=== PATIENT | male | born 1960 | race Caucasian/White ===

== ENCOUNTER → 2022-02-06 | Outpatient (CLI) | payer BC ==
--- NOTE | 2022-02-09 10:17 | PE ---
EXAMINATION TYPE: PET CT fusion skull to thigh DATE OF EXAM: 02/06/2022. CLINICAL INDICATION:Male, 61 years old with history of C88.4; TECHNIQUE: Following the intravenous administration of 11.13 mCi of F-18 FDG, whole body images are performed from the skull base to the midthigh. Images are reviewed on the computer in the coronal, a xial, and sagittal planes. Reconstructed rotating images are created on independent workstation and reviewed on the computer. A non-contrast CT is performed in conjunction with the PET scan. Glucose le marie 95 mg/dL COMPARISON: CT None, PET/CT None, FINDINGS: Mediastinal SUV mean is 1.4. Hepatic parenchyma SUV mean is 2.5. SKULL BASE AND NECK: No suspicious FDG activity. CHEST, MEDIASTINUM, AND HILAR REGION: No suspicious FDG activity. ABDOMEN AND PELVIS: No suspicious FDG activity. OSSEOUS STRUCTURES: No suspicious FDG activity. OTHER CT: Atherosclerosis of the arterial vasculature including the carotid bifurcations and the aydee nary arteries. The heart is mildly enlarged for size. Fat-containing inguinal hernias left greater th an right. The prostate gland is enlarged measuring up to 5.0 cm in transverse dimension. IMPRESSION: 1. No suspicious FDG activity. 2. No enlarged lymph nodes identified.
== END | disposition home or self-care (01) ==
LOC: RADPETMAIN 09:26
PROVIDERS: ATTEND Radiology Radiation Oncology
DX: C88.4 Extranodal marginal zone B-cell lymphoma of mucosa-associated lymphoid tissue [MALT-lymphoma] (principal)
CPT/HCPCS: 78815; A9552

== ENCOUNTER 2022-10-24 18:44 | Emergency (ER) | payer BC ==
[2022-10-24 19:03] VITALS: RESP 18; TEMP 97
--- NOTE | 2022-10-24 19:18 | ED ---
Syncope HPI - General Chief Complaint: Syncope Stated Complaint: Syncope Time Seen by Provider: 10/24/22 19:09 Source: patient, family Mode of arrival: ambulatory - History of Present Illness Initial Comments: This patient is a 62-year-old man who is here to have evaluation after he had passed out. The patient reports that he had been working outside and thinks she may been dehydrated as it was warm out. He also noted that he had been having some diarrhea previous days and might of been dehydrated to begin with. Patient states that he was going to go and get a drink of water when he attempted to get up felt lightheaded and then did pass out. He denies having any injury. No head, neck, back, chest or extremity pain. He did have some brief shaking but he did regain consciousness and was alert. There was no loss of continence. The patient did not note any chest pain, dyspnea, diaphoresis, palpitations. MD Complaint: loss of consciousness Onset/Timin -: hour(s) Prodromal Symptoms: lightheaded -: second(s) Witnessed: yes - by bystander Injuries Sustained Associated with Event: None Context: standing up Treatments Prior to Arrival: none - Related Data Home Medications Medication Instructions Recorded Confirmed Fish Oil/Dha/Epa [Fish Oil 1,200 1 each PO DAILY 09/24/14 09/24/14 mg Fish Oil] Lisinopril-Hctz 10-12.5 mg 1 each PO DAILY 09/24/14 09/27/14 [Zestoretic 10-12.5] Niacin(Unknown Dose) 4 tab PO DAILY 09/24/14 09/27/14 Vit C/E/Zn/Coppr/Lutein/Zeaxan 1 each PO DAILY 09/24/14 09/24/14 [Preservision Areds 2 Softgel] Allergies Allergy/AdvReac Type Severity Reaction Status Date / Time No Known Allergies Allergy Verified 10/24/22 19:03 Review of Systems ROS Statement: Those systems with pertinent positive or pertinent negative responses have been documented in the HPI. ROS Other: All systems not noted in ROS Statement are negative. Constitutional: Denies: fever, chills, weakness Eyes: Denies: vision change Respiratory: Denies: cough, dyspnea Cardiovascular: Reports: as per HPI, syncope. Denies: chest pain, palpitations, dyspnea on exertion, edema Gastrointestinal: Reports: as per HPI, diarrhea. Denies: abdominal pain, vomiting Genitourinary: Denies: dysuria, hematuria Musculoskeletal: Denies: back pain Skin: Denies: rash Neurological: Denies: headache, weakness, numbness, confusion Past Medical History Past Medical History: Eye Disorder, Hyperlipidemia, Hypertension Additional Past Medical History / Comment(s): MACULAR DEGENERATION History of Any Multi-Drug Resistant Organisms: None Reported Past Surgical History: Tonsillectomy Additional Past Surgical History / Comment(s): colonoscopy, nasal surg. skin ca Past Anesthesia/Blood Transfusion Reactions: No Reported Reaction Past Psychological History: No Psychological Hx Reported Smoking Status: Never smoker Past Alcohol Use History: Occasional Past Drug Use History: None Reported General Exam General appearance: alert, in no apparent distress Head exam: Present: atraumatic, normocephalic Eye exam: Present: normal appearance. Absent: scleral icterus, conjunctival injection ENT exam: Present: normal oropharynx Neck exam: Present: normal inspection, full ROM. Absent: tenderness, meningismus Respiratory exam: Present: normal lung sounds bilaterally. Absent: respiratory distress, wheezes, rales, rhonchi, stridor Cardiovascular Exam: Present: regular rate, normal rhythm, normal heart sounds. Absent: systolic murmur, diastolic murmur, rubs, gallop GI/Abdominal exam: Present: soft. Absent: distended, tenderness, guarding, rebound, rigid, mass Extremities exam: Present: normal inspection, normal capillary refill. Absent: pedal edema, calf tenderness Back exam: Present: normal inspection. Absent: CVA tenderness (R), CVA tenderness (L) Neurological exam: Present: alert, oriented X3, CN II-XII intact. Absent: motor sensory deficit Skin exam: Present: warm, dry, intact, normal color. Absent: rash Course Vital Signs 10/24/22 10/24/22 18:57 21:17 Temperature 97 F L Pulse Rate 56 L 58 L Respiratory 18 18 Rate Blood Pressure 139/60 119/56 O2 Sat by Pulse 97 98 Oximetry EKG Findings - EKG Results: EKG: interpreted by MANJIT, sinus rhythm, normal axis, normal ST/T EKG shows: bradycardia (Rate 58 bpm) - Blocks, [place], Hypertrophy, ST Abn: QRS axis and voltage: low voltage (<0.5 MV total QRS and <1.0 MV in each precordial lead) Medical Decision Making - Medical Decision Making This patient is 62-year-old man here for evaluation after syncopal episode. The syncopal episode itself is unremarkable, no injury. The chest x-ray is not showing evidence of acute infiltrate, congestive heart failure, pneumothorax, as interpreted by myself The ECG is normal. The patient is feeling well and would like to go home. 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 The patient will return if any symptoms recur. Was pt. sent in by a medical professional or institution (SUPRIYA Elliott, SALES REPRESENT[employer]IVE [employer], urgent care, hospital, or prison...) When possible be specific @ -[No] Did you speak to anyone other than the patient for history (EMS, parent, family, police, friend...)? What history was obtained from this source @ -The patient's did give some history as well Did you review nursing and triage notes (agree or disagree)? Why? @ -[I reviewed and agree with nursing and triage notes] Were old charts reviewed (outside hosp., previous admission, EMS record, old EKG, old radiological studies, urgent care reports/EKG's, prison records)? Report findings @ -[No old charts were reviewed] Differential Diagnosis (chest pain, altered mental status, abdominal pain women, abdominal pain men, vaginal bleeding, weakness, fever, dyspnea, syncope, headache, dizziness, GI bleed, back pain, seizure, CVA, palpatations, mental health, musculoskeletal)? @ -[not applicable] EKG interpreted by me (3pts min.). @ -[I interpreted as above X-rays interpreted by me (1pt min.). @ -I interpreted as above CT interpreted by me (1pt min.). @ -[None done] U/S interpreted by me (1pt. min.). @ -[None done] What testing was considered but not performed or refused? (CT, X-rays, U/S, labs)? Why? @ -[None] What meds were considered but not given or refused? Why? @ -[None] Did you discuss the management of the patient with other professionals (professionals i.e. SUPRIYA Elliott, SALES REPRESENTATIVE [employer], lab, RT, psych nurse, community mental health social worker, commissioned fire officer, teacher, credit risk review officer, manager of case)? Give summary @ -[No] Was smoking cessation discussed for >3mins.? @ -[No] Was critical care preformed (if so, how long)? @ -[No] Were there social determinants of health that impacted care today? How? (Homelessness, low income, unemployed, alcoholism, drug addiction, transportation, low edu. Level, literacy, decrease access to med. care, senior living, rehab)? @ -[No] Was there de-escalation of care discussed even if they declined (Discuss DNR or withdrawal of care, Hospice)? DNR status @ -[No] What co-morbidities impacted this encounter? (DM, HTN, Smoking, COPD, CAD, Cancer, CVA, ARF, Chemo, Hep., AIDS, mental health diagnosis, sleep apnea, morbid obesity)? @ -[None] Was patient admitted / discharged? Hospital course, mention meds given and route, prescriptions, significant lab abnormalities, going to OR and other pertinent info. @ -[Discharged Undiagnosed new problem with uncertain prognosis? @ -[No] Drug Therapy requiring intensive monitoring for toxicity (Heparin, Nitro, Insulin, Cardizem)? @ -[No] Were any procedures done? @ -[No] Diagnosis/symptom? @ -[Acute syncopal episode Acute, or Chronic, or Acute on Chronic? @ -[default] Uncomplicated (without systemic symptoms) or Complicated (systemic symptoms)? @ -[Uncomplicated Side effects of treatment? @ -[No] Exacerbation, Progression, or Severe Exacerbation? @ -[No] Poses a threat to life or bodily function? How? (Chest pain, USA, VT, pneumonia, PE, COPD, DKA, ARF, appy, cholecystitis, CVA, Diverticulitis, Homicidal, Suicidal, threat to staff... and all critical care pts) @ -[No] - Lab Data Result diagrams: 10/24/22 19:50 10/24/22 19:50 Lab Results 10/24/22 10/24/22 10/24/22 Range/Units 19:50 19:50 19:50 WBC 15.6 H (3.8-10.6) k/uL RBC 4.12 L (4.30-5.90) m/uL Hgb 13.2 (13.0-17.5) gm/dL Hct 38.7 L (39.0-53.0) % MCV 94.0 (80.0-100.0) fL MCH 32.1 (25.0-35.0) pg MCHC 34.1 (31.0-37.0) g/dL RDW 13.7 (11.5-15.5) % Plt Count 219 (150-450) k/uL MPV 8.0 Neutrophils % 78 % Lymphocytes % 12 % Monocytes % 6 % Eosinophils % 2 % Basophils % 0 % Neutrophils # 12.1 H (1.3-7.7) k/uL Lymphocytes # 1.9 (1.0-4.8) k/uL Monocytes # 1.0 (0-1.0) k/uL Eosinophils # 0.2 (0-0.7) k/uL Basophils # 0.0 (0-0.2) k/uL PT 10.8 (9.0-12.0) sec INR 1.0 (<1.2) APTT 22.7 (22.0-30.0) sec Sodium 133 L (137-145) mmol/L Potassium 4.2 (3.5-5.1) mmol/L Chloride 100 (98-107) mmol/L Carbon Dioxide 24 (22-30) mmol/L Anion Gap 9 mmol/L BUN 24 H (9-20) mg/dL Creatinine 1.18 (0.66-1.25) mg/dL Est GFR (CKD-EPI)AfAm 75 (>60 ml/min/1.73 sqM) Est GFR (CKD-EPI)NonAf 65 (>60 ml/min/1.73 sqM) Glucose 90 (74-99) mg/dL Calcium 9.1 (8.4-10.2) mg/dL Total Bilirubin 1.0 (0.2-1.3) mg/dL AST 34 (17-59) U/L ALT 42 (4-49) U/L Alkaline Phosphatase 70 (38-126) U/L Troponin I (0.000-0.034) ng/mL Total Protein 6.9 (6.3-8.2) g/dL Albumin 4.1 (3.5-5.0) g/dL 10/24/22 Range/Units 19:50 WBC (3.8-10.6) k/uL RBC (4.30-5.90) m/uL Hgb (13.0-17.5) gm/dL Hct (39.0-53.0) % MCV (80.0-100.0) fL MCH (25.0-35.0) pg MCHC (31.0-37.0) g/dL RDW (11.5-15.5) % Plt Count (150-450) k/uL MPV Neutrophils % % Lymphocytes % % Monocytes % % Eosinophils % % Basophils % % Neutrophils # (1.3-7.7) k/uL Lymphocytes # (1.0-4.8) k/uL Monocytes # (0-1.0) k/uL Eosinophils # (0-0.7) k/uL Basophils # (0-0.2) k/uL PT (9.0-12.0) sec INR (<1.2) APTT (22.0-30.0) sec Sodium (137-145) mmol/L Potassium (3.5-5.1) mmol/L Chloride (98-107) mmol/L Carbon Dioxide (22-30) mmol/L Anion Gap mmol/L BUN (9-20) mg/dL Creatinine (0.66-1.25) mg/dL Est GFR (CKD-EPI)AfAm (>60 ml/min/1.73 sqM) Est GFR (CKD-EPI)NonAf (>60 ml/min/1.73 sqM) Glucose (74-99) mg/dL Calcium (8.4-10.2) mg/dL Total Bilirubin (0.2-1.3) mg/dL AST (17-59) U/L ALT (4-49) U/L Alkaline Phosphatase (38-126) U/L Troponin I <0.012 (0.000-0.034) ng/mL Total Protein (6.3-8.2) g/dL Albumin (3.5-5.0) g/dL Disposition Clinical Impression: Syncope due to orthostatic hypotension Disposition: HOME SELF-CARE Condition: Good Instructions (If sedation given, give patient instructions): Syncope (ED) Is patient prescribed a controlled substance at d/c from ED?: No Referrals: Bill Mckinley DO [Primary Care Provider] - 1-2 days
[2022-10-24 20:01] LABS: Basophils % (A) 0 %; Eosinophils # (A) 0.2 k/uL (0-0.7); Eosinophils % (A) 2 %; HCT 38.7 % (39.0-53.0); HGB 13.2 gm/dL (13.0-17.5); Lymphocytes # (A) 1.9 k/uL (1.0-4.8); Lymphocytes % (A) 12 %; MCH 32.1 pg (25.0-35.0); MCHC 34.1 g/dL (31.0-37.0); Monocytes % (A) 6 %; Neutrophils # (A) 12.1 k/uL (1.3-7.7); Neutrophils % (A) 78 %; Platelet Count 219 k/uL (150-450); RBC 4.12 m/uL (4.30-5.90); RDW 13.7 % (11.5-15.5); WBC 15.6 k/uL (3.8-10.6)
[2022-10-24 20:21] LABS: Partial Thromboplastin Time 22.7 sec (22.0-30.0); Prothrombin Time 10.8 sec (9.0-12.0)
[2022-10-24 20:28] LABS: ALT 42 U/L (4-49); AST 34 U/L (17-59); African American GFR (CKD) 75 (>60 ml/min/1.73 sqM); Albumin 4.1 g/dL (3.5-5.0); Alkaline Phosphatase 70 U/L (38-126); Anion Gap 9 mmol/L; Blood Urea Nitrogen 24 mg/dL (9-20); Calcium 9.1 mg/dL (8.4-10.2); Carbon Dioxide 24 mmol/L (22-30); Chloride 100 mmol/L (98-107); Glucose 90 mg/dL (74-99); Non-African American GFR(CKD) 65 (>60 ml/min/1.73 sqM); Potassium 4.2 mmol/L (3.5-5.1); Sodium 133 mmol/L (137-145); Total Protein 6.9 g/dL (6.3-8.2)
--- NOTE | 2022-10-24 20:34 | XR ---
EXAMINATION TYPE: XR chest 2V DATE OF EXAM: 10/24/2022 8:12 PM COMPARISON: None TECHNIQUE: XR chest 2V Frontal and lateral views of the chest. CLINICAL INDICATION:Male, 62 years old with history of syncope; FINDINGS: Lungs/Pleura: There is no evidence of pleural effusion, focal consolidation, or pneumothorax. Pulmonary vascularity: Unremarkable. Heart/mediastinum: Cardiomediastinal silhouette is unremarkable. Musculoskeletal: No acute osseous pathology. IMPRESSION: No acute cardiopulmonary disease/process.
[2022-10-24] MEDS ORDERED: SODIUM CHLORIDE 0.9% 1,000 ML IV ONE (21:02)
[2022-10-24 21:18] VITALS: BP 119/56; PULSE 58
== END 2022-10-24 21:18 | disposition home or self-care (01) ==
LOC: EC 18:44
DX: I95.1 Orthostatic hypotension (principal)
CPT/HCPCS: 36415; 71046; 80053; 84484; 85025; 85610; 85730; 93005; 96360; 99284

== ENCOUNTER → 2024-01-17 | Outpatient (CLI) | payer MEDICARE ==
--- NOTE | 2024-01-17 21:20 | XR ---
EXAMINATION TYPE: XR chest 2V DATE OF EXAM: 01/17/2024 4:25 PM CLINICAL INDICATION: Male, 63 years old with history of R059 COUGH; COMPARISON: Chest radiographs from 10/24/2022 TECHNIQUE: XR chest 2V Frontal view of the chest. FINDINGS: Lungs/Pleura: There is no evidence of pleural effusion, focal consolidation, or pneumothorax. Pulmonary vascularity: Unremarkable. Heart/mediastinum: Cardiomediastinal silhouette is unremarkable. Musculoskeletal: No acute osseous pathology. Other findings: None IMPRESSION: No acute cardiopulmonary disease/process. [facility], , 01/17/2024 9:18 PM
== END | disposition home or self-care (01) ==
LOC: RADXRYALE 16:13
PROVIDERS: ATTEND Family Medicine
DX: R05.9 Cough, unspecified (principal)
CPT/HCPCS: 71046

== ENCOUNTER 2024-06-26 09:32 | Day surgery (SDC) | payer MEDICARE ==
[2024-06-26 10:00] VITALS: TEMP 97
[2024-06-26] MEDS: LACTATED RINGERS 1,000 ML IV SCH (10:07)
[2024-06-26] MEDS: IV FLUID CONTINUATION 1,000 ML IV ONE (10:07)
[2024-06-26] MEDS ORDERED: PROPOFOL 10 MG/ML 20 ML VIAL IV ONE (10:24)
--- NOTE | 2024-06-26 10:26 | P.GSHP ---
History of Present Illness H&P Date: 06/26/24 Chief Complaint: Colon cancer screening 64-year-old male here for colonoscopy. Last colonoscopy 10 years ago. No bowel complaints. No family history of colon cancer. 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 History of Any Multi-Drug Resistant Organisms: None Reported Past Surgical History: Tonsillectomy Additional Past Surgical History / Comment(s): colonoscopy, nasal surg Past Anesthesia/Blood Transfusion Reactions: No Reported Reaction Smoking Status: Never smoker Medications and Allergies Home Medications Medication Instructions Recorded Confirmed Type Fish Oil/Dha/Epa [Fish Oil 1,200 1 each PO DAILY 09/24/14 06/22/24 History mg Fish Oil] Lisinopril-Hctz 10-12.5 mg 1 each PO DAILY 09/24/14 06/26/24 History [Zestoretic 10-12.5] Vit C/E/Zn/Coppr/Lutein/Zeaxan 2 each PO DAILY 09/24/14 06/22/24 History [Preservision Areds 2 Softgel] Cholecalciferol [Vitamin D3 (10 10 mcg PO DAILY 06/22/24 06/22/24 History Mcg = 400 Iu)] amLODIPine BESYLATE 2.5 mg PO HS 06/22/24 06/26/24 History Allergies Allergy/AdvReac Type Severity Reaction Status Date / Time No Known Allergies Allergy Verified 06/26/24 09:54 Surgical - Exam Vital Signs Temp Pulse Resp BP Pulse Ox 97.0 F L 57 L 18 166/75 98 06/26/24 09:58 06/26/24 09:58 06/26/24 09:58 06/26/24 09:58 06/26/24 09:58 Physical exam: General: Well-developed, well-nourished HEENT: Normocephalic, sclerae nonicteric Abdomen: Nontender, nondistended Extremities: No edema Neuro: Alert and oriented Assessment and Plan (1) Colon cancer screening Narrative/Plan: Will proceed with colonoscopy at this time. Current Visit: No Status: Acute Code(s): Z12.11 - ENCOUNTER FOR SCREENING FOR MALIGNANT NEOPLASM OF COLON SNOMED Code(s): 424837536
--- NOTE | 2024-06-26 10:39 | P.PCN ---
Date of Procedure: 06/26/24 Procedure(s) Performed: PREOPERATIVE DIAGNOSIS: Colon cancer screening POSTOPERATIVE DIAGNOSIS: Ascending colon polyp x 2, rectal polyp PROCEDURE: Colonoscopy with snare polypectomy ANESTHESIA: MAC SURGEON: Javier Vicente M.D. SPECIMENS: Colon polyps ENDOSCOPIC PROCEDURE: The patient was placed on the endoscopy table in the left decubitus position. The Olympus colonoscope was inserted into the anus and passed under direct visualization to the base of the cecum. The appendiceal orifice was visualized. From that point the scope was slowly withdrawn inspecting all surfaces carefully. There were no neoplastic inflammatory or polypoid lesions throughout the cecum. In the ascending colon there were 2 separate polyps both removed using the snare with cautery technique. The remainder of the transverse descending sigmoid colon appeared normal. In the rectum another small polyp was seen and removed using the snare with cautery technique. The patient's prep was relatively poor with retained solid and liquid stool scattered throughout the colon. There was no diverticulosis seen. Digital rectal examination was normal. The patient was taken to the recovery room in stable condition per anesthesia guidelines. RECOMMENDATIONS: Await biopsy results. Resume diet. Recommend repeat colonoscopy 3 years given the patient's poor prep today.
[2024-06-26 10:59] VITALS: BP 129/72; PULSE 58; RESP 16
== END 2024-06-26 11:23 | disposition home or self-care (01) ==
LOC: ORWHC2ENDO 09:32
PROVIDERS: ATTEND Surgery
DX: Z12.11 Encounter for screening for malignant neoplasm of colon (principal); K63.5 Polyp of colon; K62.1 Rectal polyp; I10 Essential (primary) hypertension; E78.5 Hyperlipidemia, unspecified; G47.33 Obstructive sleep apnea (adult) (pediatric); Z79.899 Other long term (current) drug therapy; Z85.72 Personal history of non-Hodgkin lymphomas
CPT/HCPCS: 45385; J2704; 88305

== ENCOUNTER 2024-11-23 09:08 | Day surgery (SDC) | payer MEDICARE ==
[2024-11-19 17:00] VITALS: BMI 31.2
[~2024-11-23 09:08] MED LIST: ALPRAZolam 0.25 MG TAB PO PRN; ALPRAZolam 0.5 MG TAB PO PRN; HEPARIN SODIUM,PORCINE (1 ML) 2,500 UNIT in SODIUM CHLORIDE 0.9% 250 ML IRRIGATION PRN; HEPARIN SODIUM,PORCINE 10,000 UNIT in SODIUM CHLORIDE 0.9% 1,000 ML IRRIGATION PRN; NITROGLYCERIN SL TABS 0.4 MG TAB SUBLINGUAL PRN
[2024-11-23 09:54] VITALS: TEMP 97.7
[2024-11-23] MEDS: SODIUM CHLORIDE 0.9% 1,000 ML in EMPTY BAG 1 BAG IV SCH (09:57)
[2024-11-23] MEDS: ASPIRIN 325 MG TAB PO STA (09:59)
[2024-11-23] MEDS: IV FLUID CONTINUATION 1,000 ML IV ONE (09:59)
[2024-11-23] MEDS: HEPARIN SODIUM (1,000 UNIT/ML) 1,000 UNIT in SODIUM CHLORIDE 0.9% 1,000 ML IRRIGATION ONE (13:17)
[2024-11-23] MEDS: HEPARIN SODIUM,PORCINE (1 ML) 2,500 UNIT in SODIUM CHLORIDE 0.9% 250 ML IRRIGATION ONE (13:17)
[2024-11-23] MEDS: MIDAZOLAM 2 MG/2 ML VIAL IVP ONE (13:25)
[2024-11-23] MEDS: LIDOCAINE 1% INJ 10MG/ML (20 ML MDV) SQ ONE (13:29)
[2024-11-23] MEDS: HEPARIN SODIUM 1,000 UN/ML (10ML VL) IVP ONE (13:31)
[2024-11-23] MEDS: IOPAMIDOL-370 100ML BTL INJ ONE ×2 (13:52→14:00)
[2024-11-23] MEDS ORDERED: RX INFO: IV CONTRAST WAS GIVEN 1 EACH MISC MISCELLANE PRN (14:10)
[2024-11-23] MEDS ORDERED: SODIUM CHLORIDE 0.9% 1,000 ML IV SCH (14:15)
[2024-11-23 14:57] VITALS: RESP 16
[2024-11-23 15:26] VITALS: BP 160/67
[2024-11-23 16:25] VITALS: PULSE 62
--- NOTE | 2024-11-23 17:59 | P.PCN ---
Date of Procedure: 11/23/24 Operative Findings: CARDIAC CATHETERIZATION PERFORMING PHYSICIAN: Edmar Ruggiero MD, RPVI PROCEDURE PERFORMED: 1. Selective right and left coronary angiogram 2. Left heart catheterization 3. Ultrasound-guided access of the right radial artery INDICATION: Symptomatic 64-year-old gentleman with abnormal myocardial perfusion imaging stress test COMPLICATION: None APPROACH: Right radial artery LEVEL OF SEDATION: Moderate with a sedation length of 30 minutes PROCEDURE DESCRIPTION: After obtaining an informed consent, the patient was brought to cardiac equipment operator/laborer/supervisor. Local anesthesia was performed using lidocaine subcutaneously. The right radial artery was cannulated using Seldinger technique, under ultrasound guidance, the guidewire passed easily, following that we advanced a 5-Afghan sheath dilator assembly, the wire and dilator were removed and sheath was flushed. Following that, 2 mg of verapamil along with 5000 unit heparin were given. Selective right and left coronary angiogram using a 5-Afghan ART guide for the right and JL 3.5 catheters. Following that we did left heart catheterization using 5-Afghan pigtail catheter. The procedure was completed there was no complication. SELECTIVE CORONARY ANGIOGRAM: The right coronary artery: Large caliber vessel and a dominant vessel with no evidence of high-grade stenosis Left main: Is angiographically normal The left circumflex: Large caliber vessel with severe disease involving the distal left circumflex The left anterior descending artery: The mid LAD has intermediate lesion appears to be in the range of 50% but the LAD after the diagonal branch is occluded and fills by ipsilateral and contralateral collateral HEMODYNAMICS: The LVEDP was 12 mmHg with no significant gradient across aortic valve CONCLUSION: 1. Subtotally occluded versus occluded LAD in the midportion by the bifurcation of a large diagonal branch 2. Severe disease involving the distal left circumflex POSTPROCEDURE MANAGEMENT: Consider medical treatment at this point Consider PCI if the patient remains symptomatic in spite of medical treatment
== END 2024-11-23 17:03 | disposition home or self-care (01) ==
LOC: CATHCVL 09:08
PROVIDERS: ATTEND Internal Medicine Interventional Cardiology
DX: I25.10 Atherosclerotic heart disease of native coronary artery without angina pectoris (principal); I10 Essential (primary) hypertension; E78.5 Hyperlipidemia, unspecified; I35.0 Nonrheumatic aortic (valve) stenosis; I08.0 Rheumatic disorders of both mitral and aortic valves; E66.3 Overweight; Z68.32 Body mass index [BMI] 32.0-32.9, adult; Z79.899 Other long term (current) drug therapy; Z85.72 Personal history of non-Hodgkin lymphomas; Z82.49 Family history of ischemic heart disease and other diseases of the circulatory system
CPT/HCPCS: 93458; C1887; C1769; C1894; J2250; J1644 ×2; J2003; Q9967